=== PATIENT | male | born 1995 | race Caucasian/White ===

== ENCOUNTER 2023-08-30 16:25 | Emergency (ER) | payer OTHER ==
[2023-08-30 16:31] VITALS: BP 158/92; PULSE 84; RESP 18; TEMP 98.2; BMI 25.8
[2023-08-30] MEDS ORDERED: DIPHTH,PERTUSS(ACELL),TET 0.5 ML DISP.SYRIN IM ONE ×2 (16:51→17:04)
[2023-08-30] MEDS ORDERED: ACETAMINOPHEN 325 MG TABLET (FP) PO ONE (16:51)
[2023-08-30] MEDS ORDERED: ACETAMINOPHEN 325 MG TABLET (FP) ONE (17:04)
== END 2023-08-30 17:42 | disposition home or self-care (01) ==
LOC: JERFT 16:25
PROC: 2W3KX1Z Immobilization of Left Finger using Splint (ICD-10-PCS; principal; 2023-08-30)
PROC: 3E0234Z Introduction of Serum, Toxoid and Vaccine into Muscle, Percutaneous Approach (ICD-10-PCS; 2023-08-30)
DX: S62.645A Nondisplaced fracture of proximal phalanx of left ring finger, initial encounter for closed fracture (principal); W18.30XA Fall on same level, unspecified, initial encounter; Y99.0 Civilian activity done for income or pay
CPT/HCPCS: 73130-TC-LT-FY; 90715